=== PATIENT | female | born 1995 | race Caucasian/White ===

== ENCOUNTER 2017-06-01 09:44 | Emergency (ER) | payer OTHER ==
[~2017-06-01] VITALS: Ht 162.6 cm; Wt 71.8 kg
[2017-06-01 09:46] VITALS: BP 147/87
[2017-06-01] MEDS ORDERED: LIDOCAINE 1%, 20ML ONE (10:12)
[2017-06-01] MEDS ORDERED: LIDOCAINE 1%, 20ML SQ ONE (10:30)
== END 2017-06-01 11:27 | disposition home or self-care (01) ==
LOC: ED 11:21
DX: L03.012 Cellulitis of left finger (principal)
CPT/HCPCS: 26010; 99284